=== PATIENT | female | born 1970 | race Caucasian/White ===

== ENCOUNTER 2016-06-02 12:35 | Emergency (ER) | payer OTHER ==
[~2016-06-02 12:35] MED LIST: ACYCLOVIR800 M1 PO; AUGMENTIN 875 M1 TAB PO; DILAUDID2 MG PO; ENDOCET 325 MG-1 TA1 PO; IBU600 MG PO; IBU800 MG PO; IBUPROFEN800 M1 PO; IBUPROFEN800 MG PO; MEDROL DOSEPAK1 PAC PO; MOTRIN 600 MG600 MG PO; MOTRIN600 MG PO; MOTRIN800 MG PO; PERCOCET 325 MG1 TA2 PO; PERCOCET 5-3251 EACH PO; PREDNISONE10 M2 PO; TESSALON PERLE100 MG PO; VALIUM2 M1 PO; VALIUM2 MG PO; VALIUM5 M1 PO; VICODIN5-300 PO
--- NOTE | 2016-06-02 14:00 | ED HEAD/FACIAL INJ COMPLAINT ---
History of Present Illness General Chief Complaint: General Adult Stated Complaint: PT IS HERE FOR TMJ Source: patient, old records Exam Limitations: no limitations Vital Signs & Intake/Output Vital Signs & Intake/Output Vital Signs Date Time Temp Pulse Resp B/P B/P Pulse O2 O2 Flow FiO2 Mean Ox Delivery Rate 06/02 1424 97.1 77 18 115/77 99 Room Air 06/02 1254 97.8 81 20 131/90 97 Room Air Allergies Coded Allergies: valacyclovir (From VALTREX) (Severe, FEET AND LEG SWELLING 10/29/15) gabapentin (Intermediate, HIVES 06/26/15) metaxalone (From SKELAXIN) (Mild, FOOT SWELLING 06/26/15) pregabalin (From LYRICA) (RASH SWELLING 06/26/15) Reconcile Medications Diazepam (Valium) 2 MG TABLET 1 TAB PO BID PRN PAIN Ibuprofen 800 MG TABLET 1 TAB PO TID PRN PAIN Oxycodone HCl/Acetaminophen (Percocet 5-325 MG Tablet) 5 MG-325 MG TABLET 1 TAB PO BID PRN PAIN Triage Note: PT PRESENTS TO ER C/O OF JAW PAIN. PT STATES "I HAVE A HX OF TMJ AND MY JAW IS REALLY HURTING ME. IT ACTS UP EVERY ONCE IN A WHILE AND THIS TIME ITS BEEN TWO WEEKS." Triage Nurses Notes Reviewed? yes Onset: Gradual Severity: moderate, severe Severity Numbers: 10 Method of Injury: unknown Loss of Consciousness: no loss of consciousness Associated Symptoms: DENIES : No Patient currently breastfeeds: No HPI: 45-year-old female with history of chronic TMJ which she is having the past 25 years complaints of right sided moderate to severe jaw pain. She reports his episodes been going on for the past 2 weeks no injury or trauma and she states this feels similar to her TMJ episodes in the past. She's been taking ibuprofen without effect. She denies any facial swelling redness warmth or rashes to her skin no ear pain the pain is radiating to the right side of her head. She denies chest pain shortness of breath no modifying factors or associated symptoms otherwise. She states in the past Percocet and Valium and ibuprofen have helped (OLGA FERNANDES) Past History Travel History Traveled to [place] past 21 day No Medical History Any Pertinent Medical History? see below for history Neurological: NONE EENT: TMJ Cardiovascular: NONE Respiratory: NONE Gastrointestinal: NONE Hepatic: cholecystitis Renal: NONE Musculoskeletal: fracture, L LEG FX SHINGLES TMJ Psychiatric: NONE Endocrine: NONE Blood Disorders: NONE Cancer(s): NONE TISSUE TECHNICIAN/Reproductive: NONE Surgical History Surgical History: cholecystectomy Psychosocial History What is your primary language Portuguese Tobacco Use: Current Daily Use Daily Tobacco Use Amount/Type: => 5 Cigarettes daily Family History Hx Contributory? No (OLGA FERNANDES) Review of Systems Review of Systems Constitutional: Reports: see HPI. All Other Systems: Reviewed and Negative Comments Review of systems: See HPI, All other systems negative. Constitutional, no chills no fever, no malaise HEENT: No visual changes no sore throat no congestion Cardiovascular: No chest pain , no palpitation Skin: no rashes, no change in skin Respiratory: No dyspnea no cough no sputum no hemoptysis GI: No nausea no vomiting, no diarrhea, : No dysuria Muscle skeletal: No joint pain no back pain, no neck pain, Neurologic: No numbness no headache Psych: No stress no depression,. Heme/endocrine: No bruising no bleeding Immunology: No lymphadenopathy (OLGA FERNANDES) Physical Exam Physical Exam General Appearance: well developed/nourished, alert, awake Cranial Nerves: normal hearing, normal speech, PERRL Comments: Well-developed well-nourished patient in no apparent distress. Head/Face: Atraumatic, no maxillary/frontal sinus tenderness, no facial swelling right-sided TMJ tenderness no swelling no gingival abscess Eyes: PERRL, EOMI, no conjunctival injection. No nystagmus Ear:External auditory canals clear Nose: atraumatic.Normal inspection: No bleeding Throat: Moist mucous membranes.Pharynx normal. No stridor/drooling or assymetry. No swelling or edema. Neck: Supple, no lymphadenopathy, FROM Back: FROM Cardiovascular: Regular rate and rhythms no murmurs rubs or gallops, Respiratory: Chest nontender.There were no bony deformities, no asymmetry. No respiratory distress. Patient speaking in full complete sentences. Breath sounds clear to auscultation bilaterally: NO W/R/R Extremities: full range of motion Neuro: awake, alert, and oriented to person, place and time. There were no obvious focal neurologic abnormalities. Skin: Warm & dry;No appreciable rash on exposed skin Psych: Mood affect normal, normal memory normal judgment. (OLGA FERNANDES) Progress Differential Diagnosis: facial fracture, TMJ, TEMPORAL ARTERITIS, ABSCESS, SHINGLES Plan of Care: . I had an extensive conversation regarding need for close follow up with their primary care physician this week as well as return precautions. I answered all of their questions, they feel comfortable with the plan and follow-up care. I discussed the medications that they will receive with the patient. I gave them signs and symptoms that could indicate an adverse reaction. I have advised them to limit their activities until they can see how they respond to the medication. (OLGA FERNANDES) Departure Departure Time of Disposition: 1406 Disposition: HOME OR SELF CARE Condition: Stable Clinical Impression Primary Impression: TMJ arthralgia Referrals: PATIENT HAS NO PRIMARY CARE DR (PCP/Family) Additional Instructions: Percocet and Valium as directed ibuprofen every 8 hours. These were sent to your pharmacy heating pads as needed return with any concerns Departure Forms: Customer Survey General Discharge Information Prescriptions: Current Visit Scripts Ibuprofen 1 TAB PO TID PRN PAIN #30 TAB Diazepam (Valium) 1 TAB PO BID PRN PAIN #12 TAB Oxycodone HCl/Acetaminophen (Percocet 5-325 MG Tablet) 1 TAB PO BID PRN PAIN #10 TAB (OLGA FERNANDES) PA/[employer] Co-Sign Statement Statement: ED Attending supervision documentation- I saw and evaluated the patient. I have also reviewed all the pertinent lab results and diagnostic results. I agree with the findings and the plan of care as documented in the PA's/[employer]'s documentation. X I have reviewed the ED Record and agree with the PA's/[employer]'s documentation. [] Additions or exceptions (if any) to the PAs/[employer]'s note and plan are summarized below: [] (VANESSA WARNER,MARISELA)
[2016-06-02] MEDS ORDERED: PERCOCET 5-3251 EACH PO (14:08)
[2016-06-02] MEDS ORDERED: VALIUM2 M1 PO (14:08)
[2016-06-02] MEDS ORDERED: IBUPROFEN800 M1 PO (14:08)
[2016-06-02 14:24] VITALS: BP 115/77
== END 2016-06-02 14:24 ==
LOC: ERH 12:35
DX: M26.621 Arthralgia of right temporomandibular joint (principal)